=== PATIENT | male | born 1945 | race Caucasian/White ===

== ENCOUNTER 2017-08-19 15:00 | Emergency (ER) | payer OTHER, MEDICARE ==
[~2017-08-19] VITALS: Ht 177.8 cm; Wt 99.8 kg
[~2017-08-19 15:00] MED LIST: ACET500 PO; ATEN50 PO; BACL20 PO; CHLO25A PO; Dazidox10 MG PO; Desyrel50 MG PO; OMEP40CA12 PO
[2017-08-19] MEDS ORDERED: ALBU90OI61 INH (15:32)
[2017-08-19] MEDS ORDERED: ASPI81CH PO (15:32)
[2017-08-19] MEDS ORDERED: FURO20 PO (15:34)
[2017-08-19] MEDS ORDERED: GUAI600T33 PO (15:34)
[2017-08-19] MEDS ORDERED: LOSA25 PO (15:35)
[2017-08-19] MEDS ORDERED: NAPR220 PO (15:36)
[2017-08-19 15:39] LABS: BASOPHILS ABSOLUTE AUTO 0.06 K/mm3 (0.00-0.23); BASOPHILS PERCENT AUTO 1 % (0-2); EOSINOPHILS PERCENT AUTO 1 % (0-6); Hematocrit 46.2 % (37.0-53.0); Hemoglobin 15.4 g/dL (13.5-17.5); IMMATURE GRAN ABSOLUTE AUTO 0.03 K/mm3 (0.00-0.10); IMMATURE GRAN PERCENT AUTO 0 % (0-1); LYMPHOCYTES PERCENT AUTO 22 % (21-46); MONOCYTES ABSOLUTE AUTO 0.69 K/mm3 (0.16-1.47); MONOCYTES PERCENT AUTO 10 % (4-13); Mean Corpuscular HGB 28.7 pg (26.0-34.0); Mean Corpuscular HGB Conc 33.3 g/dL (31.5-36.5); Mean Corpuscular Volume 86 fL (80-100); Mean Platelet Volume 11.4 fL (9.1-12.4); NEUTROPHILS PERCENT AUTO 66 % (41-73); Platelet Count 165 K/mm3 (150-400); RDW Standard Deviation 40.5 fL (35.1-46.3); Red Blood Cell Count 5.37 M/mm3 (4.30-5.90); White Blood Cell Count 7.18 K/mm3 (4.00-11.30)
[2017-08-19] MEDS ORDERED: STRIVERDI RESPIM4 GM INH (15:40)
[2017-08-19] MEDS ORDERED: [UNRECOGNIZED DRUG - OTHER] INH (15:40)
[2017-08-19] MEDS ORDERED: POTCHL20ER PO (15:41)
[2017-08-19] MEDS ORDERED: BUDE6HFA INH (15:41)
[2017-08-19 16:07] LABS: Alanine Aminotransfer (ALT/SGP 43 U/L (12-78); Albumin, Blood 4.3 g/dL (3.4-5.0); Albumin/Globulin Ratio 1.4 (0.8-1.8); Alk Phos 69 U/L (50-136); Anion Gap 6 mmol/L (6-16); Aspartate Aminotrans (AST/SGOT 25 U/L (12-37); Bilirubin, Total 0.6 mg/dL (0.1-1.0); Blood Urea Nitrogen 24 mg/dL (8-24); Bun/Creatinine Ratio 28.4 (12.0-20.0); CO2, Blood 26 mmol/L (21-32); Calcium, Blood 9.2 mg/dL (8.5-10.1); Chloride, Blood 109 mmol/L (98-108); Creatinine, Blood 0.84 mg/dL (0.60-1.20); Glomerular Filtration Rate >60 (60-); Glucose, Blood 94 mg/dL (70-99); Sodium, Blood 141 mmol/L (136-145); Total Protein, Blood 7.3 g/dL (6.4-8.2)
[2017-08-19 16:44] LABS: U Amphetamine Screen Not Detected; U Barbituate Screen Not Detected; U Benzodiazapine Screen Not Detected; U Cannabinoids Screen DETECTED; U Cocaine Screen Not Detected; U Methadone Screen Not Detected; U Methamphetamine Screen Not Detected; U Opiates Screen Not Detected; U Phencyclidine Screen Not Detected
[2017-08-19 16:45] LABS: U Buprenorphine Screen Not Detected; U Oxycodone Screen Not Detected; U Propoxyphene Screen Not Detected
== END 2017-08-19 17:28 | disposition home or self-care (01) ==
LOC: ER 15:00
PROVIDERS: Emergency Medicine
DX: R41.0 Disorientation, unspecified (principal); F12.90 Cannabis use, unspecified, uncomplicated; I10 Essential (primary) hypertension; Z79.899 Other long term (current) drug therapy; Z87.891 Personal history of nicotine dependence
CPT/HCPCS: 36415; 70450; 80053; 82140; 85025; 93005; 93010; 99284

== ENCOUNTER 2020-09-29 10:17 | Inpatient (IN) | payer OTHER, MEDICARE ==
[~2020-09-29] VITALS: Ht 180.3 cm; Wt 124.5 kg
[~2020-09-29 10:17] MED LIST changes: +ALBU90OI61 INH; +Aspirin EC81 MG PO; +BUDE6HFA INH; +FURO20 PO; +GUAI600T33 PO; +LOSA25 PO; +NAPR220 PO; +POTCHL20ER PO; +STRIVERDI RESPIM4 GM INH; +[UNRECOGNIZED DRUG - OTHER] INH
[2020-09-29 10:46] LABS: BASOPHILS ABSOLUTE AUTO 0.08 K/mm3 (0.00-0.23); BASOPHILS PERCENT AUTO 1 % (0-2); EOSINOPHILS ABSOLUTE AUTO 0.16 K/mm3 (0.00-0.68); EOSINOPHILS PERCENT AUTO 3 % (0-6); Hematocrit 44.3 % (37.0-53.0); Hemoglobin 14.4 g/dL (13.5-17.5); IMMATURE GRAN ABSOLUTE AUTO 0.03 K/mm3 (0.00-0.10); IMMATURE GRAN PERCENT AUTO 1 % (0-1); LYMPHOCYTES ABSOLUTE AUTO 1.28 K/mm3 (0.84-5.20); LYMPHOCYTES PERCENT AUTO 22 % (21-46); MONOCYTES ABSOLUTE AUTO 0.49 K/mm3 (0.16-1.47); MONOCYTES PERCENT AUTO 9 % (4-13); Mean Corpuscular HGB 29.3 pg (26.0-34.0); Mean Corpuscular HGB Conc 32.5 g/dL (31.5-36.5); Mean Corpuscular Volume 90 fL (80-100); Mean Platelet Volume 11.1 fL (9.1-12.4); NEUTROPHILS PERCENT AUTO 65 % (41-73); Platelet Count 161 K/mm3 (150-400); RDW Coefficient Variation 13.4 % (11.7-14.2); RDW Standard Deviation 44.4 fL (35.1-46.3); Red Blood Cell Count 4.91 M/mm3 (4.30-5.90); White Blood Cell Count 5.74 K/mm3 (4.00-11.30)
[2020-09-29 10:58] LABS: Alanine Aminotransfer (ALT/SGP 122 U/L (12-78); Albumin, Blood 3.5 g/dL (3.4-5.0); Albumin/Globulin Ratio 1.1 (0.8-1.8); Alk Phos 78 U/L (50-136); Anion Gap 3 mmol/L (6-16); Aspartate Aminotrans (AST/SGOT 77 U/L (12-37); Bilirubin, Total 0.5 mg/dL (0.1-1.0); Blood Urea Nitrogen 21 mg/dL (8-24); Bun/Creatinine Ratio 22.3 (12.0-20.0); CO2, Blood 28 mmol/L (21-32); Calcium, Blood 8.6 mg/dL (8.5-10.1); Chloride, Blood 109 mmol/L (98-108); Creatinine, Blood 0.94 mg/dL (0.60-1.20); Globulin, Blood 3.1 g/dL (2.2-4.0); Glomerular Filtration Rate >60 (60-); Glucose, Blood 118 mg/dL (70-99); Potassium, Blood 4.2 mmol/L (3.5-5.5); Sodium, Blood 140 mmol/L (136-145); Total Protein, Blood 6.6 g/dL (6.4-8.2); Troponin I <0.015 ng/mL (0.000-0.040)
[2020-09-29] MEDS ORDERED: ACET500 PO (13:49)
[2020-09-29] MEDS ORDERED: GABA300 PO (13:49)
[2020-09-29] MEDS ORDERED: ASPIR 8181 MG PO (13:49)
[2020-09-29] MEDS ORDERED: Dicyclomine HCl10 MG PO (13:49)
[2020-09-29] MEDS ORDERED: LOSA50 PO (13:50)
[2020-09-29] MEDS ORDERED: ESCI10 PO (13:50)
[2020-09-29] MEDS ORDERED: ATOR10 PO (13:50)
[2020-09-29] MEDS ORDERED: FURO20 PO (13:50)
[2020-09-29] MEDS ORDERED: Voltaren100 GM TOP (13:51)
[2020-09-29] MEDS ORDERED: METAMUCIL POWD575 GM PO (13:51)
[2020-09-29] MEDS ORDERED: LOPE2C PO (13:52)
[2020-09-29] MEDS ORDERED: MESALAMINE800 MG PO (13:53)
[2020-09-29] MEDS ORDERED: CELE200 PO (13:54)
[2020-09-29] MEDS ORDERED: CYCL10 PO (13:54)
[2020-09-29] MEDS ORDERED: ASMANEX HFA13 G4 INH (13:54)
[2020-09-29] MEDS ORDERED: ALBU90OI INH (13:55)
[2020-09-29] MEDS ORDERED: KLOR-CON 1010 ME2 PO (13:56)
--- NOTE | 2020-09-29 16:22 | NUR ---
Echocardiogram completed.
--- NOTE | 2020-09-29 20:24 | NUR ---
REPORT OBTAINED FROM VIANCA WASHINGTON VIA PHONE AT 1535; PT TRANSFERRED TO PCU BED 9 AT 1600 VIA STRETCHER WITH PERSONAL EFFECTS, , IV THERAPY, KNOT PICKER CLOTH, AND NO OXYGEN THERAPY; TELEMETRY MONITORING INITIATED AND RHYTHM CONFIRMED WITH TELEMETRY BEING AFIB IN 120'S; PT GIVEN TEACHING AND ASSESSED; PT'S DENIES ADDITIONAL CONCERNS AT THIS TIME; PT GIVEN ACETAMINOPHEN PER MAR FOR REPORTS OF HEADACHE; PT DENIES ADDITIONAL CONCERNS AT THIS TIME
[2020-09-30 04:28] LABS: BASOPHILS ABSOLUTE AUTO 0.06 K/mm3 (0.00-0.23); BASOPHILS PERCENT AUTO 1 % (0-2); EOSINOPHILS ABSOLUTE AUTO 0.26 K/mm3 (0.00-0.68); EOSINOPHILS PERCENT AUTO 5 % (0-6); Hematocrit 43.4 % (37.0-53.0); Hemoglobin 14.3 g/dL (13.5-17.5); IMMATURE GRAN ABSOLUTE AUTO 0.02 K/mm3 (0.00-0.10); IMMATURE GRAN PERCENT AUTO 0 % (0-1); LYMPHOCYTES ABSOLUTE AUTO 1.36 K/mm3 (0.84-5.20); LYMPHOCYTES PERCENT AUTO 25 % (21-46); MONOCYTES ABSOLUTE AUTO 0.52 K/mm3 (0.16-1.47); MONOCYTES PERCENT AUTO 10 % (4-13); Mean Corpuscular HGB 28.9 pg (26.0-34.0); Mean Corpuscular HGB Conc 32.9 g/dL (31.5-36.5); Mean Corpuscular Volume 88 fL (80-100); NEUTROPHILS ABSOLUTE AUTO 3.26 K/mm3 (1.96-9.15); NEUTROPHILS PERCENT AUTO 60 % (41-73); Platelet Count 164 K/mm3 (150-400); RDW Coefficient Variation 13.5 % (11.7-14.2); RDW Standard Deviation 43.4 fL (35.1-46.3); Red Blood Cell Count 4.95 M/mm3 (4.30-5.90); White Blood Cell Count 5.48 K/mm3 (4.00-11.30)
[2020-09-30 04:47] LABS: Alanine Aminotransfer (ALT/SGP 106 U/L (12-78); Albumin, Blood 3.6 g/dL (3.4-5.0); Albumin/Globulin Ratio 1.2 (0.8-1.8); Alk Phos 76 U/L (50-136); Anion Gap 4 mmol/L (6-16); Aspartate Aminotrans (AST/SGOT 45 U/L (12-37); Bilirubin, Total 0.6 mg/dL (0.1-1.0); Blood Urea Nitrogen 21 mg/dL (8-24); Bun/Creatinine Ratio 21.8 (12.0-20.0); CO2, Blood 29 mmol/L (21-32); Calcium, Blood 8.5 mg/dL (8.5-10.1); Chloride, Blood 104 mmol/L (98-108); Creatinine, Blood 0.96 mg/dL (0.60-1.20); Glomerular Filtration Rate >60 (60-); Glucose, Blood 120 mg/dL (70-99); Potassium, Blood 3.8 mmol/L (3.5-5.5); Sodium, Blood 137 mmol/L (136-145); Total Protein, Blood 6.6 g/dL (6.4-8.2)
--- NOTE | 2020-09-30 07:14 | NUR ---
SHIFT SUMMARY PT ON CARDIZEM INFUSION T/O NIGHT HR 50'S-120'S AFIB. PT DENIED CP. SOME SOB WITH ACTIVITY, OTHERWISE TOLERATED AMBULATION WELL WITH MINIMAL ASSIST. USED HOME BIPAP T/O NIGHT. SATS MAINTAINED 93-97% T/O NIGHT. C/O HEADACHE AND TX WITH TYLENOL PER ORDER.
--- NOTE | 2020-09-30 20:27 | NUR ---
PT HAD RX REGIMEN CHANGES PER MAR; PT RECEIVED BEDSIDE CARDIAC EDUCATION BY RN; PT'S VISITED AND RECEIVED UPDATES; PT VSS AND WILLIAM; AMBULATED SEVERAL TIMES TO BR ASSISTX1; PT'S HEART RATE RANGED FROM 60 TO 120 BUT MAINTAINED AROUND 90-100; PT DENIES CARDIAC SYMPTOMS BUT REPORTS EXERTIONAL SHORTNESS OF BREATH; PT ACKNOWLEDGES DIETARY CHANGES AND NEED FOR EXERCISE AT HOME; PT AND DENY ADDITIONAL CONCERNS AT THIS TIME
[2020-10-01 04:26] LABS: CHOL/HDL RATIO 3.8; Cholesterol 165 mg/dL (50-200); HDL Cholesterol 44 mg/dL (>39); LDL/HDL RATIO 2.2; Low Density Lipoprotein Chol 95 mg/dL (0-110); Triglycerides 128 mg/dL (30-160); Very Low Density Lipoprot Chol 25 mg/dL (6-32)
--- NOTE | 2020-10-01 06:47 | NUR ---
pts afib controlled this shift. cardizem gtt stopped. digoxin gtt continued to 2nd bag. a/ox4. independent in room, sba. vss. denies needs/concerns at this time. npo at midnight for stress test scheduled today. tolerated bipap well. call light within reach.
[2020-10-01 07:34] LABS: Digoxin (Lanoxin) 0.88 ug/mL (0.80-2.00)
--- NOTE | 2020-10-01 17:14 | NUR ---
SHIFT SUMMARY NO ACUTE EVENTS THIS SHIFT. PATIENT IS ALERT AND ORIENTED, ABLE TO AMBULATE INDEPENDENTLY IN ROOM. PATIENT REMAINED IN A FIB T/O SHIFT, DENIED CHEST PAIN/PRESSURE. AT START OF SHIFT PATIENT HR IN 120s-130s, THIS RN DISCUSSED WITH DR. WAGNER, ORDERS GIVEN FOR METOPROLOL TARTRATE TO START AT 1030 IN ADDITION TO DIGOXIN PO. PATIENT'S HR IN 100s AT END OF SHIFT. PATIENT APPEARS SHORT OF BREATH AT TIMES WITH AMBULATION, HOWEVER O2 SATS REMAIN STABLE ON ROOM AIR.
--- NOTE | 2020-10-02 05:49 | NUR ---
PLEASANT AND COOPERATIVE. SLEPT WELL T/O NOC. UP INDEPENDENTLY IN ROOM. BEGAN PO METOPROLOL AT 2100. X3 DOSES GIVEN. GOOD HR CONTROL WITH PT MAINTAINING AROUND 75 AT REST. B/P STABLE. PT DENIES OTHER NEEDS/CONCERS AT THIS TIME.
[2020-10-02 09:56] LABS: Albumin, Blood 4.1 g/dL (3.4-5.0); Anion Gap 4 mmol/L (6-16); Blood Urea Nitrogen 22 mg/dL (8-24); Bun/Creatinine Ratio 23.4 (12.0-20.0); CO2, Blood 28 mmol/L (21-32); Calcium, Blood 9.2 mg/dL (8.5-10.1); Chloride, Blood 104 mmol/L (98-108); Creatinine, Blood 0.94 mg/dL (0.60-1.20); Glomerular Filtration Rate >60 (60-); Glucose, Blood 137 mg/dL (70-99); Phosphorus, Blood 2.6 mg/dL (2.5-4.9); Potassium, Blood 4.3 mmol/L (3.5-5.5); Sodium, Blood 136 mmol/L (136-145)
--- NOTE | 2020-10-02 18:10 | NUR ---
SHIFT SUMMARY NO ACUTE EVENTS THIS SHIFT, VSS. PATIENT WAS ALERT AND ORIENTED, INDEPENDENT IN ROOM. ON ROOM AIR, TOLERATING WELL. PATIENT REMAINED IN A FIB THIS SHIFT, HR RANGED HIGH 90S TO 120S. 2ND HALF STRESS TEST COMPLETED TODAY. PATIENT WENT FOR EXTENDED WALK AROUND UNIT ACCOMPLANIED BY SPOUSE, TOLERATED WELL AND STATED THAT HE "DID NOT FEEL THAT SHORT OF BREATH" COMPARED TO SOB ON ARRIVAL TO HOSPITAL.
--- NOTE | 2020-10-03 04:54 | NUR ---
SHIFT SUMMARY PT IS ALERT AND ORIENTED. VITALS ARE STABLE AND ON ROOM AIR WITH SATS ABOVE 92%. USING CPAP AT NIGHT. HEART R/R IS REMIANIN AT AFIB IN THE 100-130'S. THERE HAVE BEEN NO ACUTE CHANGES. PT DENIES CP OR SOB. PT IS ADLIB IN ROOM.
[2020-10-03 04:57] LABS: Albumin, Blood 3.7 g/dL (3.4-5.0); Anion Gap 4 mmol/L (6-16); Blood Urea Nitrogen 25 mg/dL (8-24); Bun/Creatinine Ratio 25.7 (12.0-20.0); CO2, Blood 29 mmol/L (21-32); Calcium, Blood 8.8 mg/dL (8.5-10.1); Chloride, Blood 103 mmol/L (98-108); Creatinine, Blood 0.97 mg/dL (0.60-1.20); Digoxin (Lanoxin) 1.14 ug/mL (0.80-2.00); Glomerular Filtration Rate >60 (60-); Glucose, Blood 115 mg/dL (70-99); Phosphorus, Blood 3.1 mg/dL (2.5-4.9); Potassium, Blood 3.9 mmol/L (3.5-5.5); Sodium, Blood 136 mmol/L (136-145)
--- NOTE | 2020-10-03 17:07 | NUR ---
SHIFT SUMMARY NO ACUTE EVENTS THIS SHIFT, VSS. PATIENT ALERT AND ORIENTED, ABLE TO AMBULATE INDEPENDENTLY IN ROOM. PATIENT REMAINED IN A FIB THIS SHIFT WITH HR RANGING 90S-120S. PATIENT WALKED IN HALLWAY WITH PHYSICAL THERAPY AND AGAIN IN AFTERNOON WITH SPOUSE AROUND UNIT. HR REMAINED STABLE WITH ACTIVITY. ON ROOM AIR, COMPLAINS OF SHORTNESS OF BREATH AT TIMES BUT O2 SATS MAINTAINING IN 90S.
--- NOTE | 2020-10-03 21:19 | NUR ---
ASSUMED CARE PT IS ALERT AND ORIENTED X4. DENIES CHEST PAIN OR SOB. VITALS ARE STABLE AND PT IS ON RA. PT IS AD DIANE IN ROOM. CALL LIGHT IS WITHIN REACH. WILL CONTINUE TO MONITOR.
[2020-10-04 04:28] LABS: Albumin, Blood 3.6 g/dL (3.4-5.0); Anion Gap 4 mmol/L (6-16); Blood Urea Nitrogen 27 mg/dL (8-24); Bun/Creatinine Ratio 25.5 (12.0-20.0); CO2, Blood 31 mmol/L (21-32); Calcium, Blood 8.8 mg/dL (8.5-10.1); Chloride, Blood 103 mmol/L (98-108); Creatinine, Blood 1.06 mg/dL (0.60-1.20); Digoxin (Lanoxin) 1.07 ug/mL (0.80-2.00); Glomerular Filtration Rate >60 (60-); Glucose, Blood 120 mg/dL (70-99); Phosphorus, Blood 3.2 mg/dL (2.5-4.9); Sodium, Blood 138 mmol/L (136-145)
--- NOTE | 2020-10-04 05:09 | NUR ---
SHIFT SUMMARY PT IS ALERT AND ORIENTED X4. THERE HAVE BEEN NO ACUTE CHANGES. VITAL SIGNS ARE STABLE, ON ROOM AIR, USING CPAP AT NIGHT. DENIES CHEST PAIN OR SON, ONLY SON WITH EXERTION. AD DIANE IN ROOM.
[2020-10-04] MEDS ORDERED: DIGOX250 MCG PO (11:45)
[2020-10-04] MEDS ORDERED: TOPROL XL200 MG PO (11:48)
[2020-10-04] MEDS ORDERED: Aldactone25 MG PO (11:49)
[2020-10-04] MEDS ORDERED: XARELTO20 MG PO (11:50)
--- NOTE | 2020-10-04 12:22 | NUR ---
DISCHARGE SUMMARY PT ALERT AND ORIENTED AND INDEPENDENT IN ROOM THROUGHOUT SHIFT. TOLERATING REGULAR DIET. DISCHARGE ORDERS OBTAINED. DISCHARGE EDUCATION GIVEN ON NEW RXS AND FOLLOW UP APPOINTMENTS. IV DC'D WNL. PT LEFT UNIT VIA WHEELCHAIR AT 1215 FOR HOME.
[2020-10-21] MEDS ORDERED: ROSU5 PO (10:21)
[2020-11-17] MEDS ORDERED: AMIODARONE HCL400 M2 PO (13:09)
[2020-11-17] MEDS ORDERED: METO25ER PO (13:10)
== END 2020-10-04 12:13 | disposition home or self-care (01) | DRG 291 ==
LOC: ER 10:17 → PCU 14:33
PROVIDERS: Emergency Medicine; Internal Medicine Cardiovascular Disease; Nurse Practitioner Acute Care; ADMIT Internal Medicine
PROC: 5A09357 Assistance with Respiratory Ventilation, Less than 24 Consecutive Hours, Continuous Positive Airway Pressure (ICD-10-PCS; principal; 2020-09-29)
DX: I11.0 Hypertensive heart disease with heart failure (principal); I50.21 Acute systolic (congestive) heart failure; I48.91 Unspecified atrial fibrillation; I42.8 Other cardiomyopathies; G47.33 Obstructive sleep apnea (adult) (pediatric); E66.01 Morbid (severe) obesity due to excess calories; Z68.29 Body mass index [BMI] 29.0-29.9, adult; M54.9 Dorsalgia, unspecified; E78.5 Hyperlipidemia, unspecified; G89.29 Other chronic pain; Z96.652 Presence of left artificial knee joint; J44.9 Chronic obstructive pulmonary disease, unspecified; Z99.81 Dependence on supplemental oxygen; Z79.82 Long term (current) use of aspirin; Z79.899 Other long term (current) drug therapy; Z87.891 Personal history of nicotine dependence
CPT/HCPCS: 36415; 71046; 71260; 78452; 80053; 80061; 80069; 80162; 83036; 83735; 83880; 84443; 84484; 85025; 93005; 93010; 93017; 93306; 94640; 94762; 96365; 96366; 96375; 96376; 97110; 97162; 97530; 99285-25; A9270; A9500; J0706; J1160; J1940; J2785; Q9967

== ENCOUNTER 2020-10-21 10:53 | Day surgery (SDC) | payer OTHER, MEDICARE ==
[~2020-10-21] VITALS: Ht 154.9 cm; Wt 119.9 kg
[~2020-10-21 10:53] MED LIST changes: +ALBU90OI INH; +ASMANEX HFA13 G4 INH; +ASPIR 8181 MG PO; +ATOR10 PO; +Aldactone25 MG PO; +CELE200 PO; +CYCL10 PO; +DIGOX250 MCG PO; +Dicyclomine HCl10 MG PO; +ESCI10 PO; +GABA300 PO; +KLOR-CON 1010 ME2 PO; +LOPE2C PO; +LOSA50 PO; +MESALAMINE800 MG PO; +METAMUCIL POWD575 GM PO; +ROSU5 PO; +TOPROL XL200 MG PO; +Voltaren100 GM TOP; +XARELTO20 MG PO
--- NOTE | 2020-10-21 15:43 | NUR ---
ALERT AND ORIENTED X4. ROOM AIR SATING MID 90'S. DENIES CHEST PAIN/PRESSURE. TELE SHOWING SINUS TERRELL WITH HR 40'S. NON SYMPTOMATIC AT THIS TIME. PT DENIES SOB, DIZZINESS OR FEELING ILL. AT BEDSIDE. ABLE TO COMPLETE ADMISSION. ZOLL AT BEDSIDE FOR MONITORING. VITAL SIGNS STABLE. BOWEL TONES HEARD. DENIES PAIN/NEEDS AT THIS TIME. CALL LIGHT IN REACH. ORIENTATION TO UNIT AND NURSING ROUNDING. 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 PT REPORTS SEVERE PTSD AND VERY DEPENDENT ON . PLAN FOR PACER POSSIBLY TOMORROW OR MONDAY. HOME MEDICATIONS ORDERED. PLAN TO START HEPARIN TONIGHT AT 1700, PER ORDERS. EKG DONE IN ROOM AND IN CHART. PLAN FOR FILEMON TOMORROW AT 0500. WILL CONTINUE TO MONITOR.
[2020-10-21 15:44] LABS: International Normalized Ratio 1.25; Prothrombin Time Results 13.3 Sec (9.7-11.5)
--- NOTE | 2020-10-21 19:25 | NUR ---
SHIFT SUMMARY: SEE PREVIOUS NOTE FOR UPDATES. PT REMAINS STABLE AFTER CURTIS AND CARDIOVERSION. TELE REMAINS SINUS TERRELL WITH HR 40-50'S. ZOLL AT BEDSIDE. PT HAD ONE EPISODE OF CHEST PAIN DESCRIBED "10 POUND WEIGHT ON HIS CHEST". REPEAT EKG DONE. PAIN RELEIVED BY LAYING DOWN. CALL PLACED TO DR. RODRIGUEZ. NEW ORDERS FOR TROPONIN. VITAL SIGNS REMAIN STABLE. BROUGHT IN HOME BIPAP. PT REMAINS BR. PLAN FOR NPO TONIGHT AND EKG AT 0500. PT ATE DINNER AND DRINKING WATER. HEPARIN STARTED AT 1700. CALL LIGHT IN REACH. REPORTED OFF TO ONCOMING RN.
[2020-10-22 04:21] LABS: BASOPHILS ABSOLUTE AUTO 0.05 K/mm3 (0.00-0.23); BASOPHILS PERCENT AUTO 1 % (0-2); EOSINOPHILS ABSOLUTE AUTO 0.15 K/mm3 (0.00-0.68); EOSINOPHILS PERCENT AUTO 3 % (0-6); Hematocrit 43.2 % (37.0-53.0); Hemoglobin 14.4 g/dL (13.5-17.5); IMMATURE GRAN ABSOLUTE AUTO 0.01 K/mm3 (0.00-0.10); IMMATURE GRAN PERCENT AUTO 0 % (0-1); LYMPHOCYTES ABSOLUTE AUTO 1.66 K/mm3 (0.84-5.20); LYMPHOCYTES PERCENT AUTO 28 % (21-46); MONOCYTES ABSOLUTE AUTO 0.69 K/mm3 (0.16-1.47); MONOCYTES PERCENT AUTO 12 % (4-13); Mean Corpuscular HGB Conc 33.3 g/dL (31.5-36.5); Mean Corpuscular Volume 87 fL (80-100); Mean Platelet Volume 11.8 fL (9.1-12.4); NEUTROPHILS PERCENT AUTO 56 % (41-73); Platelet Count 159 K/mm3 (150-400); RDW Coefficient Variation 13.2 % (11.7-14.2); RDW Standard Deviation 42.2 fL (35.1-46.3); Red Blood Cell Count 4.96 M/mm3 (4.30-5.90); White Blood Cell Count 5.86 K/mm3 (4.00-11.30)
[2020-10-22 04:46] LABS: Anion Gap 2 mmol/L (6-16); Blood Urea Nitrogen 25 mg/dL (8-24); Bun/Creatinine Ratio 20.3 (12.0-20.0); CO2, Blood 32 mmol/L (21-32); Calcium, Blood 8.5 mg/dL (8.5-10.1); Chloride, Blood 102 mmol/L (98-108); Creatinine, Blood 1.23 mg/dL (0.60-1.20); Glomerular Filtration Rate >60 (60-); Glucose, Blood 122 mg/dL (70-99); Potassium, Blood 4.2 mmol/L (3.5-5.5); Sodium, Blood 136 mmol/L (136-145); Troponin I <0.015 ng/mL (0.000-0.040)
--- NOTE | 2020-10-22 06:27 | NUR ---
SHIFT SUMMARY PT HAD A 9 BEAT RUN OF [place], APART FROM THAT HE STAYED IN SIN[place] BRADYCARD[place]. HE SLEPT WITH HIS C-PAP ON 2LPM DURING THE NIGHT. NO C/O CHEST PAIN. HE TOLERATED AN EKG WELL THIS MORNING. VSS. WILL CONTINUE TO MONITOR.
[2020-10-22 09:07] LABS: Digoxin (Lanoxin) 1.54 ug/mL (0.80-2.00)
--- NOTE | 2020-10-22 11:54 | NUR ---
PT IS ALERT AND ORIENTED X4. ON ROOM AIR, LUNGS SOUNDING CLEAR/DIM IN BASES. TELE SHOWING SINUS TERRELL WITH BIGEMINAL PVC'S. HR AVERAGING MID 40'S. PATIENT NONSYMPTOMATIC. DENIES CHEST PAIN/PRESSURE. VITAL SIGNS REMAIN STABLE. PT NPO WAITING PACER PLACEMENT. HEPARIN NORMAL SALINE INFUSING AT THIS TIME. BOWEL TONES HEARD. PT HAPPY AND COOPERATIVE WITH CARES. NO COMPLAINTS OF SOB, OR COUGH THIS MORNING. CALL LIGHT IN REACH. BEDREST. USING URINAL IN BED. WILL CONTINUE TO MONITOR.
--- NOTE | 2020-10-22 18:13 | NUR ---
PT LEFT FOR [facility]ENTER AT 1720 VIA BED. ANGIOGRAM PLANNED.
--- NOTE | 2020-10-22 19:18 | NUR ---
SHIFT SUMMARY: PT RETURNS FROM ANGIOGRAM AT 1840, RIGHT RADIAL SIGHT. TR BAND PLACED AT 1825 WITH 13ML. PLAN TO MEDICALLY MANAGE. NO STENTS PLACED. RIGHT RADIAL SIGHT SOFT/NON TENDER NO SIGNS OF BLEEDING. DISTAL PULSE STRONG. VITAL SIGNS STABLE. ARM BOARD IN PLACE. CALL LIGHT IN REACH. PT EATING DINNER. DENIES CHEST PAIN/PRESSURE. REPORTED OFF TO ONCOMING RN.
--- NOTE | 2020-10-23 02:03 | NUR ---
193: PT ARRIVED TO PCU POST ANGIO WITH TR BAND IN PLACE, INFALTED WITH 13ML OF AIR. NO BRUISING OR DRAINAGE NOTED, RADIAL PULSE PALPATED STRONG. PT DENIES CHEST PAIN OR SOB. VITAL SIGNS MONITORED FREQUENTLY PER PROTOCOL. TR BAND REMOVED AT 2345. NO SIGNS OF DRAINAGE, BLEEDING OR HEMATOMA. DENIES NUMBNESS/TINGLING. RADIAL PULSE PRESENT AND STRONG. RECEIVED 600 MLS OF NS TO HELP CLEAR CONTRAST POST ANGIO. HEPARIN DRIP IS DC'D, STARTED PO XARELTO WHICH PT STATES HE TAKES AT HOME. PT REMAINS MONITORED VIA TELEMETRY, SINUS TERRELL WITH PVC'S PER TECH REPORT. PT IS NPO AFTER MIDNIGHT PER DR. RODRIGUEZ ORDER. PT IS SLEEPING USING BI-PAP AT 2LPM, SATING ABOVE 92%. VSS. WILL CONTINUE TO MONITOR.
[2020-10-23 04:00] LABS: BASOPHILS ABSOLUTE AUTO 0.05 K/mm3 (0.00-0.23); BASOPHILS PERCENT AUTO 1 % (0-2); EOSINOPHILS ABSOLUTE AUTO 0.13 K/mm3 (0.00-0.68); EOSINOPHILS PERCENT AUTO 3 % (0-6); Hemoglobin 13.4 g/dL (13.5-17.5); IMMATURE GRAN ABSOLUTE AUTO 0.01 K/mm3 (0.00-0.10); IMMATURE GRAN PERCENT AUTO 0 % (0-1); LYMPHOCYTES ABSOLUTE AUTO 1.46 K/mm3 (0.84-5.20); LYMPHOCYTES PERCENT AUTO 31 % (21-46); MONOCYTES ABSOLUTE AUTO 0.59 K/mm3 (0.16-1.47); MONOCYTES PERCENT AUTO 13 % (4-13); Mean Corpuscular HGB 28.9 pg (26.0-34.0); Mean Corpuscular HGB Conc 32.7 g/dL (31.5-36.5); Mean Corpuscular Volume 88 fL (80-100); Mean Platelet Volume 11.4 fL (9.1-12.4); NEUTROPHILS ABSOLUTE AUTO 2.46 K/mm3 (1.96-9.15); NEUTROPHILS PERCENT AUTO 52 % (41-73); Platelet Count 144 K/mm3 (150-400); RDW Coefficient Variation 13.2 % (11.7-14.2); RDW Standard Deviation 42.5 fL (35.1-46.3); Red Blood Cell Count 4.64 M/mm3 (4.30-5.90)
[2020-10-23 04:48] LABS: Anion Gap 5 mmol/L (6-16); Blood Urea Nitrogen 23 mg/dL (8-24); Bun/Creatinine Ratio 20.2 (12.0-20.0); CO2, Blood 29 mmol/L (21-32); Calcium, Blood 8.5 mg/dL (8.5-10.1); Chloride, Blood 107 mmol/L (98-108); Creatinine, Blood 1.14 mg/dL (0.60-1.20); Glomerular Filtration Rate >60 (60-); Glucose, Blood 111 mg/dL (70-99); Potassium, Blood 3.7 mmol/L (3.5-5.5); Sodium, Blood 141 mmol/L (136-145)
--- NOTE | 2020-10-23 11:37 | NUR ---
PT DISCHARGE PT PROVIDED WITH DISCHARGE INSTRUCTIONS PER PHYSICIAN. MEDICATION CHANGES EXPLAINED TO PT. MEDICATION ORDERS FAXED TO PT'S PREFERRED PHARMACY. TELE REMOVED. IV REMOVED. PT BROUGHT WITH ALL BELONGINGS TO 'S VEHICLE BY WHEELCHAIR BY [place].
[2020-11-17] MEDS ORDERED: AMIODARONE HCL400 M2 PO (13:09)
[2020-11-17] MEDS ORDERED: METO25ER PO (13:10)
== END 2020-10-23 11:36 | disposition home or self-care (01) ==
LOC: MHTC 10:53 → PCU 14:05 → MHTC 10-23 11:36
PROVIDERS: Internal Medicine Cardiovascular Disease
DX: I48.19 Other persistent atrial fibrillation (principal); I50.22 Chronic systolic (congestive) heart failure
CPT/HCPCS: 36415; 76937; 80048; 80162; 84484; 85025; 85610; 85730; 92960; 93005; 93010; 93246; 93312; 93325; 93458; 94760; 94762; A9270; C1769; C1894; J0461; J1644; J2250; J2704; J3010; J7030; J7040; J7050; Q9967

== ENCOUNTER 2020-11-18 07:42 | Day surgery (SDC) | payer OTHER, MEDICARE ==
[~2020-11-18] VITALS: Ht 180.3 cm; Wt 114.0 kg
[~2020-11-18 07:42] MED LIST changes: +AMIODARONE HCL400 M2 PO; +METO25ER PO
--- NOTE | 2020-11-18 10:51 | NUR ---
DISCHARGE PT REMAINED A&OX3 DURING RECOVERY. POST EKG PERFORMED. PT ABLE TO DRESS SELF INDEPENDANTLY. IV DC'D WITH CANULA IN TACT. DISCHARGE PAPERWORK GONE OVER WITH PT AND SPOUSE. PT AND SPOUSE VERBALLY STATED THE UNDERSTANDING OF THE DISCHARGE EDUCATION AND DENIED ANY QUESTIONS AT THIS TIME. PT ABULATED TO WHEELCHAIR WITH STEADY GAIT. PT WHEELED OUT BY THIS NURSE.
== END 2020-11-18 23:19 | disposition home or self-care (01) ==
LOC: MHTC 07:42
DX: I48.0 Paroxysmal atrial fibrillation (principal); I49.5 Sick sinus syndrome; I42.8 Other cardiomyopathies; I47.2 Ventricular tachycardia; I47.1 Supraventricular tachycardia; I10 Essential (primary) hypertension; E78.5 Hyperlipidemia, unspecified; G47.33 Obstructive sleep apnea (adult) (pediatric); J44.9 Chronic obstructive pulmonary disease, unspecified; K58.9 Irritable bowel syndrome, unspecified; F43.10 Post-traumatic stress disorder, unspecified; E66.9 Obesity, unspecified; Z87.891 Personal history of nicotine dependence
CPT/HCPCS: 92960; 93005; 93010; J2704; J7030

== ENCOUNTER 2021-08-25 20:15 | Emergency (ER) | payer OTHER, MEDICARE ==
[~2021-08-25] VITALS: Ht 180.3 cm; Wt 122.5 kg
[2021-08-25 23:35] LABS: BASOPHILS ABSOLUTE AUTO 0.08 K/mm3 (0.00-0.23); BASOPHILS PERCENT AUTO 1 % (0-2); EOSINOPHILS ABSOLUTE AUTO 0.17 K/mm3 (0.00-0.68); EOSINOPHILS PERCENT AUTO 2 % (0-6); Hematocrit 45.1 % (37.0-53.0); Hemoglobin 14.6 g/dL (13.5-17.5); IMMATURE GRAN ABSOLUTE AUTO 0.03 K/mm3 (0.00-0.10); IMMATURE GRAN PERCENT AUTO 0 % (0-1); LYMPHOCYTES ABSOLUTE AUTO 1.95 K/mm3 (0.84-5.20); LYMPHOCYTES PERCENT AUTO 22 % (21-46); MONOCYTES ABSOLUTE AUTO 0.88 K/mm3 (0.16-1.47); MONOCYTES PERCENT AUTO 10 % (4-13); Mean Corpuscular HGB 28.1 pg (26.0-34.0); Mean Corpuscular HGB Conc 32.4 g/dL (31.5-36.5); Mean Corpuscular Volume 87 fL (80-100); Mean Platelet Volume 11.4 fL (9.1-12.4); NEUTROPHILS ABSOLUTE AUTO 5.75 K/mm3 (1.96-9.15); NEUTROPHILS PERCENT AUTO 65 % (41-73); Platelet Count 199 K/mm3 (150-400); RDW Coefficient Variation 13.3 % (11.7-14.2); RDW Standard Deviation 42.2 fL (35.1-46.3); White Blood Cell Count 8.86 K/mm3 (4.00-11.30)
[2021-08-25 23:41] LABS: Alanine Aminotransfer (ALT/SGP 27 U/L (12-78); Albumin, Blood 3.8 g/dL (3.4-5.0); Albumin/Globulin Ratio 1.3 (0.8-1.8); Alk Phos 68 U/L (50-136); Anion Gap 4 mmol/L (6-16); Aspartate Aminotrans (AST/SGOT 16 U/L (12-37); Bilirubin, Total 0.2 mg/dL (0.1-1.0); Blood Urea Nitrogen 23 mg/dL (8-24); Bun/Creatinine Ratio 23.1 (12.0-20.0); CO2, Blood 32 mmol/L (21-32); Calcium, Blood 9.1 mg/dL (8.5-10.1); Chloride, Blood 107 mmol/L (98-108); Creatinine, Blood 0.99 mg/dL (0.60-1.20); Glomerular Filtration Rate >60 (60-); Glucose, Blood 71 mg/dL (70-99); Potassium, Blood 4.2 mmol/L (3.5-5.5); Sodium, Blood 143 mmol/L (136-145); Total Protein, Blood 6.8 g/dL (6.4-8.2)
[2021-08-26] MEDS ORDERED: Robaxin750 MG PO (00:45)
== END 2021-08-26 01:44 | disposition home or self-care (01) ==
LOC: ER 20:15
PROVIDERS: Student in an Organized Health Care Education/Training Program
DX: K92.1 Melena (principal); K64.4 Residual hemorrhoidal skin tags; T45.515A Adverse effect of anticoagulants, initial encounter; I10 Essential (primary) hypertension; J44.9 Chronic obstructive pulmonary disease, unspecified; I48.91 Unspecified atrial fibrillation; Z79.899 Other long term (current) drug therapy
CPT/HCPCS: 36415; 80053; 85025; A9270; J2930

== ENCOUNTER 2022-05-13 13:42 | Emergency (ER) | payer OTHER ==
[~2022-05-13] VITALS: Ht 180.3 cm; Wt 123.4 kg
[~2022-05-13 13:42] MED LIST changes: +Robaxin750 MG PO
[2022-05-13 14:28] LABS: BASOPHILS ABSOLUTE AUTO 0.07 K/mm3 (0.00-0.23); BASOPHILS PERCENT AUTO 1 % (0-2); EOSINOPHILS ABSOLUTE AUTO 0.14 K/mm3 (0.00-0.68); EOSINOPHILS PERCENT AUTO 3 % (0-6); Hematocrit 44.1 % (37.0-53.0); Hemoglobin 14.8 g/dL (13.5-17.5); IMMATURE GRAN ABSOLUTE AUTO 0.01 K/mm3 (0.00-0.10); IMMATURE GRAN PERCENT AUTO 0 % (0-1); LYMPHOCYTES ABSOLUTE AUTO 1.45 K/mm3 (0.84-5.20); LYMPHOCYTES PERCENT AUTO 26 % (21-46); MONOCYTES ABSOLUTE AUTO 0.56 K/mm3 (0.16-1.47); MONOCYTES PERCENT AUTO 10 % (4-13); Mean Corpuscular HGB 28.4 pg (26.0-34.0); Mean Corpuscular HGB Conc 33.6 g/dL (31.5-36.5); Mean Corpuscular Volume 85 fL (80-100); Mean Platelet Volume 10.8 fL (9.1-12.4); NEUTROPHILS ABSOLUTE AUTO 3.36 K/mm3 (1.96-9.15); NEUTROPHILS PERCENT AUTO 60 % (41-73); Platelet Count 195 K/mm3 (150-400); RDW Coefficient Variation 12.9 % (11.7-14.2); RDW Standard Deviation 39.8 fL (35.1-46.3); Red Blood Cell Count 5.21 M/mm3 (4.30-5.90); White Blood Cell Count 5.59 K/mm3 (4.00-11.30)
[2022-05-13 14:33] LABS: Albumin, Blood 3.9 g/dL (3.4-5.0); Albumin/Globulin Ratio 1.3 (0.8-1.8); Bilirubin, Total 0.5 mg/dL (0.1-1.0); Bun/Creatinine Ratio 19.6 (12.0-20.0); Calcium, Blood 9.1 mg/dL (8.5-10.1); Creatinine, Blood 0.92 mg/dL (0.60-1.20); Globulin, Blood 3.1 g/dL (2.2-4.0); Potassium, Blood 3.9 mmol/L (3.5-5.5)
== END 2022-05-13 18:44 | disposition home or self-care (01) ==
LOC: ER 13:42
PROVIDERS: Physician Assistant
DX: J44.9 Chronic obstructive pulmonary disease, unspecified (principal); I10 Essential (primary) hypertension; Z79.899 Other long term (current) drug therapy; Z79.02 Long term (current) use of antithrombotics/antiplatelets; Z96.653 Presence of artificial knee joint, bilateral
CPT/HCPCS: 36415; 71045; 80053; 83880; 84484; 85025; 93005; 93010

== ENCOUNTER 2022-05-27 13:32 | Inpatient (IN) | payer MEDICARE, OTHER ==
[~2022-05-27] VITALS: Ht 180.3 cm; Wt 122.5 kg
[~2022-05-27 13:32] MED LIST changes: -KLOR-CON 1010 ME2 PO; +POTA10T PO
[2022-05-27 15:03] LABS: BASOPHILS ABSOLUTE AUTO 0.08 K/mm3 (0.00-0.23); BASOPHILS PERCENT AUTO 1 % (0-2); EOSINOPHILS ABSOLUTE AUTO 0.11 K/mm3 (0.00-0.68); EOSINOPHILS PERCENT AUTO 2 % (0-6); Hematocrit 44.5 % (37.0-53.0); Hemoglobin 14.9 g/dL (13.5-17.5); IMMATURE GRAN ABSOLUTE AUTO 0.02 K/mm3 (0.00-0.10); IMMATURE GRAN PERCENT AUTO 0 % (0-1); LYMPHOCYTES ABSOLUTE AUTO 1.58 K/mm3 (0.84-5.20); LYMPHOCYTES PERCENT AUTO 26 % (21-46); MONOCYTES PERCENT AUTO 10 % (4-13); Mean Corpuscular HGB 28.3 pg (26.0-34.0); Mean Corpuscular HGB Conc 33.5 g/dL (31.5-36.5); Mean Corpuscular Volume 84 fL (80-100); Mean Platelet Volume 11.2 fL (9.1-12.4); NEUTROPHILS ABSOLUTE AUTO 3.73 K/mm3 (1.96-9.15); NEUTROPHILS PERCENT AUTO 61 % (41-73); Platelet Count 203 K/mm3 (150-400); RDW Coefficient Variation 13.2 % (11.7-14.2); RDW Standard Deviation 40.7 fL (35.1-46.3); Red Blood Cell Count 5.27 M/mm3 (4.30-5.90); White Blood Cell Count 6.12 K/mm3 (4.00-11.30)
[2022-05-27 15:24] LABS: Albumin, Blood 3.7 g/dL (3.4-5.0); Albumin/Globulin Ratio 1.1 (0.8-1.8); Bilirubin, Total 0.4 mg/dL (0.1-1.0); Bun/Creatinine Ratio 17.9 (12.0-20.0); Creatinine, Blood 1.06 mg/dL (0.60-1.20); Globulin, Blood 3.3 g/dL (2.2-4.0)
--- NOTE | 2022-05-28 05:32 | NUR ---
PT IS A&O4, INDEPENDENT WITH ADLS, RA USES CPAP AT NIGHT, ON CONTINUOUS SPO2, VSS, NO COMPLAINTS OF PAIN OR DISCOMFORT OVERNIGHT, CONTINUE POC
--- NOTE | 2022-05-28 11:07 | NUR ---
MD WAGNER VERBAL TO HOLD MORNING BP MEDS. BP 94/67. HR=61.
[2022-05-28 15:35] LABS: International Normalized Ratio 1.09; Prothrombin Time Results 11.4 Sec (9.7-11.5)
--- NOTE | 2022-05-28 17:36 | NUR ---
SHIFT SUMMARY-PT IS AAOX4 THIS SHIFT. CALM AND PLEASANT. PT STARTED ON A HEPARIN DRIP THIS SHIFT. PT IS NOW RECEIVING SERIAL EKG'S EVERY 6 HOURS. BP MEDS HELD THIS AM DUE TO LOW BP AND HR. BP=97/64 AND HR=61. PT TO START SOTALOL THIS EVENING. PT TO RECEIVE AN EKG AT 2000 TONIGHT PRIOR TO START OF SOTALOL AND 2 HOURS AFTER DOSE GIVEN.
--- NOTE | 2022-05-29 05:47 | NUR ---
PT IS A&O4, INDEPENDENT, RA USES CPAP AT NIGHT, HEPARIN RUNNING 30.1ML/HR, SR-SB ON TELE, NO COMPLAINTS OF PAIN OR DISCOMFORT THIS SHIFT, VSS, CONTINUE POC
[2022-05-29 05:48] LABS: Hematocrit 39.1 % (37.0-53.0); Hemoglobin 12.8 g/dL (13.5-17.5); Mean Platelet Volume 11.5 fL (9.1-12.4); Platelet Count 179 K/mm3 (150-400)
--- NOTE | 2022-05-29 13:22 | NUR ---
RN CALLED DR. METCALF AND ASKED IF HE WOULD LIKE RN TO GIVE SOTALOL THIS AM WHEN PT'S HR=58-60. MD SAID TO GIVE UNLESS HR IS LESS THAN 40.
--- NOTE | 2022-05-29 18:20 | NUR ---
SHIFT SUMMARY- PT AAOX4. X1 ASSIST. PT HAD 2 ACUTE EVENTS WHILE AMBULATING TO THE BATHROOM THIS SHIFT WHERE PT WAS EXTREMELY SOB. MD WAGNER NOTIFIED. BRONCHODILATORS ORDERED. PT MUCH IMPROVED AFTER BREATHING TREATMENTS. 40MG IV LASIX GIVEN-PT HAS HAD OVER 2L URINE OUTPUT.
[2022-05-30 04:37] LABS: Hematocrit 39.1 % (37.0-53.0); Hemoglobin 12.8 g/dL (13.5-17.5); Mean Corpuscular HGB 28.9 pg (26.0-34.0); Mean Corpuscular HGB Conc 32.7 g/dL (31.5-36.5); Mean Corpuscular Volume 88 fL (80-100); Mean Platelet Volume 10.9 fL (9.1-12.4); Platelet Count 184 K/mm3 (150-400); RDW Coefficient Variation 13.3 % (11.7-14.2); RDW Standard Deviation 43.3 fL (35.1-46.3); Red Blood Cell Count 4.43 M/mm3 (4.30-5.90); White Blood Cell Count 7.86 K/mm3 (4.00-11.30)
[2022-05-30 05:21] LABS: Anion Gap 5 mmol/L (6-16); Blood Urea Nitrogen 19 mg/dL (8-24); Bun/Creatinine Ratio 18.8 (12.0-20.0); CO2, Blood 28 mmol/L (21-32); Calcium, Blood 8.4 mg/dL (8.5-10.1); Chloride, Blood 103 mmol/L (98-108); Creatinine, Blood 1.01 mg/dL (0.60-1.20); Glomerular Filtration Rate 77 (60-); Glucose, Blood 125 mg/dL (70-99); Potassium, Blood 3.8 mmol/L (3.5-5.5); Sodium, Blood 136 mmol/L (136-145)
--- NOTE | 2022-05-30 05:32 | NUR ---
PT IS A&O4, INDEPENDENT WITH ADL'S, ON RA USES CPAP AT NIGHT, HEPARIN RUNNING AT 30.1ML/HR, VSS, NO COMPLAINTS OF SOB OR DISCOMFORT THIS SHIFT, CONTINUE POC
--- NOTE | 2022-05-30 09:41 | NUR ---
CALL TO SALES APPLICATIONS ENGINEER CALL TO DR. MARCANO CALLED AND NOTIFIED OF THE PT AND CONSULT. DR. MARCANO ORDERED TO TURN OFF HEPARIN GTT NOW AND THAT HE WILL BE IN TO SEE THE PATIENT WITHIN THE HOUR. NO OTHER ORDERS AT THIS TIME. PT NPO A THIS TIME.
[2022-05-30] MEDS ORDERED: SOTO80 PO (12:56)
--- NOTE | 2022-05-30 13:13 | NUR ---
DISCHARGE PT DISCHARGED AFTER EDUCATION ON NEW MEDS AND MED CHANGES WERE DISCUSSED. FOLLOW UP INSTRUCTIONS AND APPOINTMENTS WENT OVER WITH THE PT AND HIS . PT & DENIED NEED FOR FURTHER INSTRUCTION. IV REMOVED & INTACT. PT WHEELED OUT BY AIDE & DRIVEN HOME BY FAMILY
== END 2022-05-30 13:13 | disposition home or self-care (01) | DRG 309 ==
LOC: ER 13:32 → MEDS 13:33
PROVIDERS: Internal Medicine; Internal Medicine Interventional Cardiology; Physician Assistant; ADMIT Hospitalist
PROC: 5A2204Z Restoration of Cardiac Rhythm, Single (ICD-10-PCS; principal; 2022-05-28)
DX: I48.0 Paroxysmal atrial fibrillation (principal); I50.22 Chronic systolic (congestive) heart failure; K50.90 Crohn's disease, unspecified, without complications; I49.5 Sick sinus syndrome; G47.33 Obstructive sleep apnea (adult) (pediatric); I11.0 Hypertensive heart disease with heart failure; J44.9 Chronic obstructive pulmonary disease, unspecified; M54.9 Dorsalgia, unspecified; F43.10 Post-traumatic stress disorder, unspecified; G89.29 Other chronic pain; E66.01 Morbid (severe) obesity due to excess calories; Z96.653 Presence of artificial knee joint, bilateral; Z68.37 Body mass index [BMI] 37.0-37.9, adult; Z98.890 Other specified postprocedural states; Z79.899 Other long term (current) drug therapy
CPT/HCPCS: 36415; 71046; 80053; 80069; 83880; 84484; 85014; 85018; 85025; 85027; 85049; 85610; 85730; 92960; 93005; 93010; 94640; 94660; 94664; 94760; 94762; 96372; 99285-25; A9270; G0378; J1644; J1940; J7030

== ENCOUNTER 2022-06-28 11:09 | Day surgery (SDC) | payer OTHER, MEDICARE ==
[~2022-06-28] VITALS: Ht 180.3 cm; Wt 119.8 kg
[~2022-06-28 11:09] MED LIST changes: +SOTO80 PO
[2022-06-28] MEDS ORDERED: ACET500 PO (16:24)
[2022-06-28] MEDS ORDERED: CYCL10 PO (16:25)
[2022-06-28] MEDS ORDERED: METHOCARBAMOL1000 MG PO (16:29)
[2022-06-28] MEDS ORDERED: LOSA25 PO (16:31)
--- NOTE | 2022-06-28 18:05 | NUR ---
SHIFT SUMMARY PT ARRIVED TO PCU FROM [facility] APPROX 1530. PT A&OX4. sp02>90% on ra, CPAP AT NOC W/ 2L BLEED IN. TELEMETRY SHOWS NSR/OCCASIONALLY V PACED, HR 60'S. VSS. PT POST PACER. NO SWELLING OR BLEEDING NOTED. SLIGHT BRUISING. DRESSING C/D/I. ARM SLING IN PLACE. PT C/O OF MODERATE PAIN AT PACER SIGHT, ACHING. MEDICATED X1 PER EMAR. FAMILY AT BEDSIDE THIS AFTERNOON. PT ORIENTED TO ROOM, CALL LIGHT. CALL LIGHT IN REACH.
--- NOTE | 2022-06-29 04:49 | NUR ---
SHIFT SUMMARY ASSUMED CARE OF PT AT 1900. PT IS A/OX4. HEART SOUNDS REGULAR. PT WAS PACED T/O THE NIGHT. LUNG SOUNDS CLEAR. PT WORE HOME CPAP T/O THE NIGHT. PT C/O SORE/ACHY PAIN FROM PACER SITE. MEDICATED PER EMAR. NO OTHER COMPLAINTS.
--- NOTE | 2022-06-29 09:58 | NUR ---
PT REPORTS CHEST PAIN ASSUMED CARE OF PT AT 0700 THIS AM. APROX 0850 PT REPORTED 7/10 SHARP, R SIDED CHEST PAIN WITH RADIATION DOWN R ARM. EKG OBTAINED WITH NO APPARENT CHANGES. VSS. PT REPORTED CHEST PAIN HAD STOPPED BY 09. DR ARREAGA NOTIFIED, HOLDING D/C AT THIS TIME. CALL LIGHT IN REACH, WILL CONTINUE TO MONITOR.
[2022-06-29] MEDS ORDERED: SOTO80 PO (10:57)
--- NOTE | 2022-06-29 12:00 | NUR ---
PT DISCHARGED HOME AFTER DR ARREAGA AT BEDSIDE TO EVALUATE. PT HAS HAD NO FURTHER EPISODES OF CHEST PAIN SINCE THIS AM. IV REMOVED. DISCHARGE TEACHING REVIEWED WITH PT AND HIS , INCLUDING MEDICATION LIST, APPOINTMENTS AND EDUCATION. POST PACEMAKER RESTRICTIONS REVIEWED AND PT DEMONSTRATES AND VERBALIZES UNDERSTANDING. PRESCRIPTIONS SENT TO [facility] PER PT REQUEST. ALL BELONGINGS SENT HOME WITH PT. NO FURTHER DISCHARGE NEEDS IDENTIFIED.
== END 2022-06-29 12:08 | disposition home or self-care (01) ==
LOC: MHTC 11:09 → PCU 14:44 → MHTC 06-29 12:08
DX: I49.5 Sick sinus syndrome (principal); I48.0 Paroxysmal atrial fibrillation; R06.09 Other forms of dyspnea; I50.9 Heart failure, unspecified; I11.0 Hypertensive heart disease with heart failure; J44.9 Chronic obstructive pulmonary disease, unspecified; Z87.891 Personal history of nicotine dependence
CPT/HCPCS: 33208; 71046; 93005; 93010; 94762; 99152; 99153; A9270; C1785; C1894; C1898; J0690; J1644; J2250; J3010; J7040; Q9967

== ENCOUNTER 2022-09-19 05:40 | Day surgery (SDC) | payer OTHER ==
[~2022-09-19] VITALS: Ht 180.3 cm; Wt 118.6 kg
[2022-09-19] VITALS (14 sets, daily range): BP systolic 87–131; BP diastolic 65–88
[~2022-09-19 05:40] MED LIST changes: +METHOCARBAMOL1000 MG PO
[2022-09-19] MEDS ORDERED: METO25ER PO (06:27)
[2022-09-19] MEDS ORDERED: FLUT1DIS8 INH (06:28)
--- NOTE | 2022-09-19 07:50 | NUR ---
PT DROWSY, BUT CONVESING APPROPRIATELY POST CARDIOVERSION, DENIES PAIN; REMAINS AV PACED, OTHER VSS. PT'S AT BEDSIDE ATTENTIVE.
--- NOTE | 2022-09-19 08:20 | NUR ---
PT DRESSED SELF WITHOUT ISSUE, IV REMOVED-CANNULA INTACT.
--- NOTE | 2022-09-19 08:26 | NUR ---
PT AND RECEIVED DISCHARGE INSTRUCTIONS, MED LIST AND AFTER CARE INSTRUCTIONS; VERBALIZED GOOD UNDERSTANDING. PT LEFT FACILITY VIA W/C, CONDITION STABLE.
== END 2022-09-19 22:53 | disposition home or self-care (01) ==
LOC: MHTC 05:40
DX: I48.0 Paroxysmal atrial fibrillation (principal); I11.0 Hypertensive heart disease with heart failure; I50.22 Chronic systolic (congestive) heart failure; I25.10 Atherosclerotic heart disease of native coronary artery without angina pectoris; E78.5 Hyperlipidemia, unspecified; J44.9 Chronic obstructive pulmonary disease, unspecified; G47.33 Obstructive sleep apnea (adult) (pediatric); Z88.8 Allergy status to other drugs, medicaments and biological substances; Z79.01 Long term (current) use of anticoagulants; Z79.899 Other long term (current) drug therapy
CPT/HCPCS: 92960; 93005; 93010; J7030